=== PATIENT | female | born 1990 | race Caucasian/White ===

== ENCOUNTER 2017-03-20 16:41 | Emergency (ER) | payer OTHER ==
[2017-03-20 18:56] VITALS: BMI 26.2
[2017-03-20 23:27] VITALS: BP 120/80; PULSE 93; RESP 18; TEMP 98.7; O2SAT 100
== END 2017-03-20 18:45 | disposition home or self-care (01) ==
LOC: H.EROB2 16:41
DX: O23.13 Infections of bladder in pregnancy, third trimester (principal); Z3A.38 38 weeks gestation of pregnancy

== ENCOUNTER 2017-03-30 20:33 | Inpatient (IN) | payer OTHER ==
[2017-03-30 21:24] VITALS: BMI 25.4
[2017-03-30] MEDS ORDERED: Nalbuphine 20 mg/ml Inj (1 ml) IVP PRN (21:39)
[2017-03-30] MEDS: Lactated Ringer's 1,000 ML IV SCH ×2 (22:00→23:17)
--- NOTE | 2017-03-31 00:28 | OBADHP ---
Datetime: 03/30/2017 21:40 Admit Comment, IP Provider: 26 y/o female with IUP at 40wks gestation presents to [facility] with CTX starting at 6am. Denies lof, vb. +FM. ROS negative PNC: [facility], no pnc records OBHx: Previous c section, planned for PMHx: manuel Meds: PNV Allergies: NKDA VSS General: Appears intermittently uncomfortable, AOx3 Cardio: RRR, no murmur Pulm: CTABL Abdomen: Gravid, NT Extremities: no LE edema Pelvic: cervix 1cm FHR: 144, reactive CTX: Irregular Assessment: IUP at 40wks with ctx, early labor Plan: Observation. Nubain for pain. IV hydration. Continous monitoring. Monitor for progress ion of labor. d/w OB Attending, Dr. Jay Douglas PGY1 Addendum By Dr. Thompson: Patient evaluated independently and I agree with the above. Patient recheck ed, still 2cm/100/-2. Patient very uncomfortable and asking for epidural despite Nubain. Will admit p atient for early labor. Risks of including risk of maternal/ and uterine rupture disc ussed and risks of repeat discussed. Patient signed consent for both. Will allow labor to p rogress, CEFM and TOCO and re-evaluate Vital Signs Provider: Reviewed; Within Normal Limits IP Chief Complaint: Uterine contractions Dilatation, Provider: 1 Effacement, Provider: 100 EGA AdmitDate IP: 40.0 IP Adm Impression: Term, intrauterine IP Admit Plan: Observation/Evaluation Datetime: 03/20/2017 17:01 IP Adm Impression Other: Cystitis Pelvic Type - PN: Adequate Abdomen - PN: Normal Back - PN: Normal Lungs - PN: Normal Heart - PN: Normal Neurologic - PN: Normal General - PN: Normal FHR - Baseline A Provider: 140 Membranes, Provider: Intact Contraction Comments Provider: Occasional Comments, ACOG Physical Exam: Abd: Soft, NT, BS- present Gestation - Est Wks by US: 38.0 NICHD Variability Prov Fetus A: Moderate 6-25bpm NICHD Accel Fetus A IP Provider: 15X15 FHR Category Provider Fetus A: Category I Genitourinary Exam: Normal DTRs - PN: Normal
[2017-03-31 00:41] LABS: BASO % 0.2 % (0.0-2.0); HEMOGLOBIN 12.3 g/dL (12.0-16.0); LYMPH # 1.4 K/uL (1.0-4.3); LYMPH % 9.2 % (20.0-40.0); MEAN CELL VOLUME 93.6 fl (81.0-99.0); MEAN CORPUSCULAR HEMOGLOBIN 30.3 pg (27.0-31.0); MEAN CORPUSCULAR HGB CONC 32.3 g/dL (33.0-37.0); MEAN PLATELET VOLUME 9.1 fl (7.2-11.7); MONO # 0.5 K/uL (0.0-0.8); MONO % 3.2 % (0.0-10.0); NEUT # 13.1 K/uL (1.8-7.0); NEUT % 87.4 % (50.0-75.0); PLATELET COUNT 251 K/uL (130-400); RBC 4.08 Mil/uL (3.80-5.20); RED CELL DISTRIBUTION WIDTH 13.8 % (11.5-14.5)
[2017-03-31] MEDS ORDERED: Fentanyl/Bupivacaine HCl 250 ML EPI ONE (00:58)
[2017-03-31] MEDS ORDERED: Bupivacaine HCl 0.25% PF (10 ml) Inj ONE (01:20)
[2017-03-31 02:24] LABS: ANISOCYTOSIS SLIGHT; LYMPHOCYTE 7 % (20-50); MONOCYTE 4 % (0-10); NEUTROPHIL 88 % (42-75); PLATELET ESTIMATE NORMAL (NORMAL); REACTIVE LYMPHOCYTES 1 % (0-0); TOTAL CELLS COUNTED 100
[2017-03-31 02:25] LABS: LARGE PLATELETS PRESENT
[2017-03-31] MEDS: Lactated Ringer's 1,000 ML IV SCH ×2 (06:00→14:30)
--- NOTE | 2017-03-31 11:29 | OBPN ---
Datetime: 03/31/2017 09:00 IP Progress Impression: Normal progression of labor; Reassuring heart rate IP Informed Consent Obtain: Vaginal After ; Risks, Benefits and Alternatives Discussed IP Progress Plan: Continue present management; Anesthesia consult Pool Provider: Negative Membranes, Provider: Intact Contraction Comments Provider: occasional FHR - Baseline A Provider: 135 Presentation-Admit: Vertex IP Progress Note Comment: OB Hospitalist on-call : Sign out rec'd. She rec'd epidural. She feels fine. Occ lower abd CTX; no VB; +FM SVE too high to AROM A: IUP at term; previous C/S early labor PLAN: discussed labor, , augmentation with medications/AROM, delivery, and . Will r e-examine NICHD Accel Fetus A IP Provider: 15X15 FHR Category Provider Fetus A: Category I NICHD Variability Prov Fetus A: Moderate 6-25bpm Dilatation, Provider: 3 Effacement, Provider: 50 Station, Provider: high NICHD Decel Fetus A IP Provider: None Datetime: 03/30/2017 21:40 Vital Signs Provider: Reviewed; Within Normal Limits Datetime: 03/20/2017 17:01 Gestation - Est Wks by US: 38.0
[2017-03-31] MEDS ORDERED: cefOXitin 2 GM in Sodium Chloride 0.9% 100 ML IVPB ONE (18:15)
[2017-03-31] MEDS ORDERED: Oxytocin 30 units/LR 500ML 30 U/500 ML BAG IV ONE (18:16)
--- NOTE | 2017-03-31 18:20 | OBPN ---
Datetime: 03/31/2017 18:15 IP Informed Consent Obtain: Section Delivery; Risks, Benefits and Alternatives Discussed IP Progress Plan: Deliver- Section IP Progress Note Comment: NOtiifed of prolonged decel noted. No cervical change noted A: Decel noted and remote from delivery PLAN: Condition discussed with pt. She understands. Informe consent obtained for C/S (operative delivery) FHR Category Provider Fetus A: Category II NICHD Decel Fetus A IP Provider: Prolonged Datetime: 03/31/2017 16:20 IP Progress Impression Other: Latnet phase of labor IP Progress Impression: Reassuring heart rate IP Procedures: Artificial ROM Contraction Comments Provider: occasional Dilatation, Provider: 3 Effacement, Provider: 50 Station, Provider: -2
[2017-03-31] MEDS ORDERED: Morphine 5 mg/10 ml preservative-free Inj(Duramorph) ONE (18:23)
[2017-03-31] MEDS ORDERED: ePHEDrine 50 mg/ml Inj ONE (18:23)
[2017-03-31] MEDS ORDERED: Bupivacaine HCl 0.5% PF (30 ml) Inj ONE (18:24)
[2017-03-31] MEDS ORDERED: Oxycodone/Acetaminophen 5/325 mg Tab PO PRN (20:31)
[2017-03-31] MEDS ORDERED: DiphenhydrAMINE 50 mg/ml Inj IVP PRN (20:31)
--- NOTE | 2017-03-31 21:01 | OBDS ---
DELIVERY PERSONNEL Delivery Doctor: Maria Antonia Farrar DO Scrub Nurse: Nicolasa Chaparro Cook Cold Meat: MBorreoRN/W immRNAN Anesthesiologist: Sofy Dejesus MD Resident: Dr Krysta Swain MATERNAL INFORMATION Delivery Anesthesia: Epidural Medications in Delivery: Pitocin Estimated Blood Loss (ml): 800 Placenta Cultured: No Maternal Complications: None Provider Comments: PreOp Dx: decelerations remote from delivery IUP at 40w; previous C/S x 1 Post Op Dx same Procedure: repeat LTCS via previous abdominoplasty scar Surgeon Dr Farrar Asst Dr Yepez Asst Dr Swain Anest: Dr Dejesus Ane epidural Findings: -live [facility] -clear AF -cord around arm and body - 9,9 Placenta delivered intact manually Ovaries and tubes WNL grossly EBL 800cc She remained stable LABOR SUMMARY EDC: 03/30/2017 00:00 No. Babies in Womb: 1 Attempted: No Labor Anesthesia: Epidural LABOR INFORMATION Reason for Induction: Other Reason for Induction Other: Oxytocin: N/A Group B Beta Strep: Negative Antibiotics # of Doses: mefoxin 2 grams Antibiotics Time of Last Dose: 1819 Steroids Given: None Reason Steroids Not Administered: Not Applicable MEMBRANES Membranes Rupture Method: Artificial Rupture of Membranes: 03/31/2017 16:15 Length of Rupture (hrs): 2.73 Amniotic Fluid Color: Clear Amniotic Fluid Amount: Moderate Amniotic Fluid Odor: Normal STAGES OF LABOR Stage 3 hrs: 0 Stage 3 min: 1 CSECTION DELIVERY Primary Indication: Other/dece CSection Urgency: Non Elective CSection Incidence: Repeat Labor: Labor CSection Incision: Lower Uterine Transverse Uterine Closure: Single-layer closure BABY A INFORMATION Delivery Date/Time: 03/31/2017 18:59 Method of Delivery: Born in Route : No : N/A Forceps: N/A Vacuum Extraction: N/A Shoulder Dystocia : No SHOULDER DYSTOCIA BABY A Infant Delivery Date/Time: 03/31/2017 18:59 PRESENTATION/POSITION BABY A Presentation: Cephalic Cephalic Presentation: Vertex Breech Presentation: N/A PLACENTA INFORMATION BABY A Placenta Delivery Time : 03/31/2017 19:00 Placenta Method of Delivery: Expressed Placenta Status: Delivered SCORES BABY A Heart Rate 1 min: >100 bpm Resp Effort 1 min: Good Cry Reflex Irritability 1 min: Cough or Sneeze or Pulls Away Muscle Tone 1 min: Active Motion Color 1 min: Body Abbott, Extremities Blue Resuscitation Effort 1 min: Tactile Stimulation SCORE 1 MIN: 9 Heart Rate 5 min: >100 bpm Resp Effort 5 min: Good Cry Reflex Irritability 5 min: Cough or Sneeze or Pulls Away Muscle Tone 5 min: Active Motion Color 5 min: Body Abbott, Extremities Blue Resuscitation Effort 5 min: N/A SCORE 5 MIN: 9 INFORMATION BABY A Gestational Age at Delivery: 40.0 Gestational Status: Term Outcome : Liveborn Infant Condition : Stable Sex: Female IDENTIFICATION/MEDS BABY A ID Band Number: [id number] ID Band Location: Left Leg; Left Arm Vitamin K Given : Not Given Erythromycin Given: Not Given WEIGHT/LENGTH BABY A Birthweight (gms): 2870 Weight (lb): 6 Infant Weight (oz): 5 CORD INFORMATION BABY A No. Cord Vessels: 3 Nuchal Cord : N/A Nuchal Cord Other: body and arm True Knot: n/a Infant Cord pH Baby Arterial: n/a Cord pH Baby Venous: n/a Cord Blood Taken: Yes Banking/Donate Info: n/a Suction: Mouth; Nose ASSESSMENT BABY A Infant Complications: None Physical Findings at Delivery: Within Normal Limits Respirations: Appears Normal Machine Egg Washer/ALS Called : No Infant Care By: Dr Puga/Tavo/Lai/CBakerLactation applications development consultant Transferred To: Remains with Mother
[2017-04-01] MEDS: Lactated Ringer's 1,000 ML IV SCH (05:06)
[2017-04-01] MEDS ORDERED: Oxycodone/Acetaminophen 5/325 mg Tab PO PRN (07:24)
--- NOTE | 2017-04-01 07:44 | OP ---
PROCEDURE DATE: 03/31/2017 PREOPERATIVE DIAGNOSIS: Intrauterine at 40 weeks' gestation, previous section x1, decelerations remote from delivery. POSTOPERATIVE DIAGNOSIS: Intrauterine at 40 weeks' gestation, previous section x1, decelerations remote from delivery. PROCEDURE: Repeat low transverse section via previous abdominoplasty scar. SURGEON: Dr. Alen Farrar. FABRICATION LEAD: Dr. Jeannette Yepez (Dr. Yepez is a board certified DIESEL STATIONARY ENGINEER physician, who is available to assist on this difficult case. His presence was vital and necessary. He was present from skin incision to delivery of the infant to skin closure). SECOND FABRICATION LEAD: Dr. Swain (PGY-2). ANESTHESIOLOGIST: Tiburcio Dejesus MD TYPE OF ANESTHESIA: Epidural. OPERATIVE FINDINGS: A live delivered from cephalic presentation, clear amniotic fluid noted. Cord was noted to be wrapped around the arm and the body. score given was 9 and 9 at 1 and 5 minutes respectively. Placenta was delivered intact manually. Ovaries and tubes appeared to be within normal limits. ESTIMATED BLOOD LOSS: 800 mL. She remained hemodynamically stable throughout the procedure. DESCRIPTION OF PROCEDURE: Berenice was brought to the operating room. She already had an epidural catheter in place. She also had Foss catheter in place. Compression boots were placed on both lower extremities. She was placed in a supine position. She was draped and prepped in the usual sterile manner. IV antibiotics were given. Once adequate anesthesia was obtained, an incision was made to remove part of the abdominoplasty scar in the midline using scalpel. The incision was then taken down to underlying fascia using electrocautery. The fascia was nicked in the midline. PDS sutures were noted. These were removed. Fascial incision was then extended bilaterally using electrocautery. The inferior aspect of the fascia was grasped using 2 Aristeo clamps and tented up in the rectus muscle both bluntly and sharply dissected using electrocautery. The same was done with the superior aspect of the fascia. In the midline, we were able to identify the peritoneum in between the rectus muscle. This was entered bluntly and then extended superiorly and inferiorly with direct visualization of bladder and intestines. Bladder blade was then inserted. A low incision was made on the peritoneum on the uterus in order to create a bladder flap and this was extended bilaterally using Metzenbaum scissors. A bladder flap was created digitally. Bladder blade was then inserted behind the bladder flap. A low transverse incision was made using a scalpel upon entering the uterus, clear amniotic fluid was noted. Incision was then extended bluntly. First, the head was delivered as atraumatically as possible. Once the reminder of the was delivered, cord was noted to be wrapped around the body as well as the right arm. Cord was clamped and cut. Infant was handed to the liner assembler in attendance. The was crying spontaneously. Cord bloods were obtained. Placenta was delivered intact manually. Uterus was then exteriorized, cleared of debris and clots. First layer of the uterus was closed using 0 Vicryl suture in interlocking fashion. Second layer of the uterus closed using 0 Vicryl suture imbricating the first layer. Good hemostasis was assured. Posterior cul-de-sac was noted to be clear of debris and clots. The uterus was placed back into the peritoneal cavity. Irrigation was performed. The lower uterine segment was noted to have good hemostasis. All equipments was removed and accounted for. Rectus muscle was approximated x3 using 0 Vicryl suture. Hemostasis assured. 0 Vicryl suture was used to approximate the fascial layer in a running fashion using suture all the way through. All equipments was removed and accounted for. Hemostasis assured using electrocautery. Skin preeti were then used to approximate the skin. Pressure bandage applied. All equipments, sponges, needles accounted for. Alen Farrar DO MTDYaritza
--- NOTE | 2017-04-01 08:49 | OBPPN ---
Datetime: 04/01/2017 08:47 PP Pain Prov: Within normal limits PP Nausea Prov: Denies PP Flatus Prov: Yes PP Breasts Prov: Not Done PP Heart Prov: Normal PP Lungs Prov: Normal PP Abdomen/Uterus Prov: Normal PP Lochia Prov: Not Done PP Vulva/Perineum Prov: Not Done PP CVA Tenderness Prov: Normal PP Extremities Prov: Normal PP Progress Prov: Normal PP Impression Prov: Normal progression PP Plan Prov: Continue present management PP Progress Note Prov: Patient did very well ambulating tolerating diet and pain well controlled Vital signs stable afebrile Uterus firm below the umbilicus Extremities no Homans Postoperative day #1 failed Ambulation, regular diet, analgesia as needed Vital Signs Provider PP: Reviewed
[2017-04-01 09:01] LABS: BASO % 0.1 % (0.0-2.0); EOS % 0.2 % (0.0-4.0); HEMOGLOBIN 9.6 g/dL (12.0-16.0); LYMPH # 1.2 K/uL (1.0-4.3); LYMPH % 10.9 % (20.0-40.0); MEAN CELL VOLUME 92.1 fl (81.0-99.0); MEAN CORPUSCULAR HEMOGLOBIN 31.1 pg (27.0-31.0); MEAN CORPUSCULAR HGB CONC 33.8 g/dL (33.0-37.0); MEAN PLATELET VOLUME 8.3 fl (7.2-11.7); MONO # 0.5 K/uL (0.0-0.8); MONO % 4.2 % (0.0-10.0); NEUT # 9.6 K/uL (1.8-7.0); NEUT % 84.6 % (50.0-75.0); NRBC % 0.1 % (0.0-0.0); RBC 3.07 Mil/uL (3.80-5.20); RED CELL DISTRIBUTION WIDTH 13.4 % (11.5-14.5); WHITE BLOOD COUNT 11.4 K/uL (4.8-10.8)
--- NOTE | 2017-04-03 10:44 | OBDCSUM ---
Datetime: 04/03/2017 10:31 Discharged to, Provider: Home Follow up at, Provider: OB Disch Instr Activity: Normal activity; May be up to bathroom; May be up for meals; May Shower Disch Instr Diet: Regular Discharge Diagnosis, Provider: Term Delivered Discharge Time: 04/03/2017 10:31 Follow up in weeks, Provider: 1 week incision check up , 6 weeks check up Disch Referrals: None Disch Activity Restrictions: Minimize stair-climbing; No sexual activity; Nothing in vagina - Interc ourse, tampons, douche
--- NOTE | 2017-04-03 10:44 | OBPPN ---
Datetime: 04/03/2017 10:39 PP Pain Prov: Within normal limits PP Nausea Prov: Denies PP Flatus Prov: Yes PP Breasts Prov: Normal PP Heart Prov: Normal PP Lungs Prov: Normal PP Abdomen/Uterus Prov: Normal PP Lochia Prov: Normal PP Vulva/Perineum Prov: Normal PP CVA Tenderness Prov: Normal PP Extremities Prov: Normal PP Comments Phys Exam Prov: fundus firm under umbilicus Incision clean/dry/intact PP Impression Prov: Normal progression PP Plan Prov: Continue present management PP Progress Note Prov: Patient denies CP, no SOB, no N/V, tolerating Po diet, ambulating/voidign wel l, mild lochia, abdominal pain tolerable with meds A/P POD #3 1. Discharge patient home 2. Discharge instructions reviewed IP PP Procedures: None Vital Signs Provider PP: Reviewed; Within Normal Limits
[2017-04-03 18:37] VITALS: BP 120/80; PULSE 97; RESP 20; TEMP 99.4; O2SAT 100
== END 2017-04-03 14:30 | disposition home or self-care (01) | DRG 766 ==
LOC: H.EROB2 20:33 → H.L&D 23:40 → H.OB/GYN 03-31 22:00
PROVIDERS: ADMIT Obstetrics & Gynecology; ATTEND Obstetrics & Gynecology
PROC: 4A1HXCZ Monitoring of Products of Conception, Cardiac Rate, External Approach (ICD-10-PCS; 2017-03-30)
PROC: 10D00Z1 Extraction of Products of Conception, Low, Open Approach (ICD-10-PCS; principal; 2017-03-31)
DX: O76 Abnormality in fetal heart rate and rhythm complicating labor and delivery (principal); N85.8 Other specified noninflammatory disorders of uterus; Z37.0 Single live birth; O34.211 Maternal care for low transverse scar from previous cesarean delivery; O69.81X0 Labor and delivery complicated by cord around neck, without compression, not applicable or unspecified; Z3A.40 40 weeks gestation of pregnancy